=== PATIENT | male | born 1955 | race Caucasian/White ===

== ENCOUNTER 2016-04-09 22:17 | Emergency (ER) | payer OTHER ==
[2016-04-09] MEDS ORDERED: LISINOPRIL 10 MG TAB As Ordered ONE (22:54)
[2016-04-09] MEDS ORDERED: ONDANSETRON 4 MG ORAL DISINTEGRATING TAB (S0181) As Ordered ONE (23:32)
[2016-04-09 23:35] LABS: MEAN CORPUSCULAR HEMOGLOBIN 31.3 pg (27.0-33.0); MEAN CORPUSCULAR HGB CONC 35.2 g/dl (32.0-36.5); MEAN CORPUSCULAR VOLUME 88.9 fl (80.0-96.0); RED CELL DISTRIBUTION WIDTH 13.1 % (11.5-14.5); WHITE BLOOD COUNT 7.6 K/mm3 (4.0-10.0)
[2016-04-09 23:58] LABS: ANION GAP 8 MEQ/L (8-16); BLOOD UREA NITROGEN 12 MG/DL (7-18); CARBON DIOXIDE LEVEL 30 MEQ/L (21-32); CHLORIDE LEVEL 104 MEQ/L (98-107); CREATININE FOR GFR 0.94 MG/DL (0.70-1.30); GLOMERULAR FILTRATION RATE > 60.0 (>49); GLUCOSE, FASTING 132 MG/DL (80-110); SODIUM LEVEL 142 MEQ/L (136-145)
--- NOTE | 2016-04-10 00:17 | EDDOCDS ---
Nurse's Notes [facility] Name: Angel Bingham Age: 60 yrs Sex: Male : 1955 Arrival Date: 04/09/2016 Time: 22:17 Bed 8 Private MD: NO PRIMARY PHYSICIAN, . Diagnosis: Essential (primary) hypertension Presentation: 04/09 22:25 Presenting complaint: Patient states: that he checked his BP before bed and it was ms18 approx 175 systolic. Pt reports a headache, and weak/shaky. Adult Sepsis Screening: The patient does not have new or worsening altered mentation. Patient's respiratory rate is less than 22. Systolic blood pressure is greater than 100. Patient has a qSOFA score of 0- Negative Sepsis Screen. Suicide/Homicide risk assessment- the patient denies having any suicidal and/or homicidal ideations and does not present with any other emotional, behavioral or mental health complaints. Status: Patient is not a auto servicer or dependent. Transition of care: patient was not received from another setting of care. 22:25 Acuity: CATHLEEN Level 3 ms18 22:25 Method Of Arrival: Walkin/Carried/Asstd ms18 Triage Assessment: 22:28 General: Appears in no apparent distress, comfortable, Behavior is appropriate for age, ms18 cooperative. Pain: Location: head Pain currently is 4 out of 10 on a pain scale. HIV screening NA for this visit Offered previously. Neurological: Level of Consciousness is awake, alert, obeys commands, Oriented to person, place, time. Respiratory: Airway is patent Respiratory effort is even, unlabored. Derm: Skin is pink, warm & dry. Historical: - Allergies: no known allergies; - Home Meds: 1. aspirin 81 mg Oral tab 1 tab once daily - PMHx: borderline HTN; - PSHx: Shoulder Arthroscopy- Right; Hernia repair; Spinal Fusion; - Social history: Smoking status: Patient states former smoker of tobacco. No barriers to communication noted, The patient speaks fluent Frisian. - Family history: Not pertinent. - : The pt / caregiver states he / she is not on anticoagulants. Home medication list is obtained from the patient. - Exposure Risk Screening:: None identified. Screenin:59 Screening information is obtained from the patient. Fall risk: No risks identified. ko2 Assistance ADL's: requires no assistance with activities of daily living. Abuse/DV Screen: The patient / caregiver reports he/she is: not in a situation that causes fear, pain or injury. Nutritional screening: No deficits noted. Advance Directives: Currently, there is no health care proxy. There is no active DNR order. There is no living will. There is no Power of Inseam Leveler. home support is adequate. Assessment: 22:35 General: Appears in no apparent distress, Behavior is appropriate for age, cooperative. ko2 Pain: Location: head Pain currently is 4 out of 10 on a pain scale. Neurological: Level of Consciousness is awake, alert. Respiratory: Airway is patent Respiratory effort is even, unlabored. Derm: Skin is normal. 23:40 General: Appears in no apparent distress, Behavior is appropriate for age, cooperative. ko2 Pain: Location: head Pain currently is 3 out of 10 on a pain scale. Neurological: Level of Consciousness is awake, alert. Respiratory: Airway is patent Respiratory effort is even, unlabored. Derm: Skin is normal. 04/10 00:15 General: Appears in no apparent distress, Behavior is appropriate for age, cooperative. ko2 Neurological: Level of Consciousness is awake, alert. Respiratory: Airway is patent Respiratory effort is even, unlabored. Derm: Skin is normal. Vital Signs: 04/09 22:19 BP 199 / 93; Resp 18 S; Temp 97.2(O); Pulse Ox 98% on R/A; Weight 87.54 kg (R); Height gr2 5 ft. 9 in. (175.26 cm) (R); Pain 3/10; 22:59 BP 188 / 98; ko2 23:40 BP 160 / 106; ko2 04/10 00:05 BP 173 / 100; Pulse 82; Resp 18; Temp 99.0(TE); Pulse Ox 97% on R/A; gamal 04/09 22:19 Body Mass Index 28.50 (87.54 kg, 175.26 cm) gr2 Vitals: 04/09 22:19 Log In Time: April 09, 2016 at 22:19. RN notified that patient meets Red Flag gr2 criteria. ED Course: 22:19 Patient visited by Lisa Henry. gr2 22:19 NO PRIMARY PHYSICIAN, . is Private Physician. gr2 22:19 Patient moved to Waiting gr2 22:23 Patient visited by Lisa Henry. gr2 22:23 Patient moved to Pre RCE gr2 22:26 Triage Initiated ms18 22:29 Elsa Farris,RN is Primary Nurse. ms18 22:29 Patient moved to 8 ms18 22:44 Randy Lynn [facility]NP [facility]. ke 22:44 Patient visited by Randy Lynn FNP. ke 22:44 Patient visited by Randy Lynn FNP. ke 22:59 Patient visited by Elsa Farris,LUCIO. ko2 23:00 EKG done. (by ED staff). Reviewed by Randy BARBOSA. jmv 23:01 Patient visited by Charles Sexton, GROUND WOOD SUPERVISOR. jmv 23:11 CBC Sent. jmv 23:11 BMP Sent. jmv 23:11 Troponin Sent. jmv 23:11 CIP Sent. jmv 23:34 Patient visited by Randy Lynn FNP. ke 04/10 00:01 Paul Hastings MD is Referral Physician. ke 00:06 Patient visited by Trudy Coronado PCA. gamal 00:15 The patient / caregiver is instructed regarding the plan of care and ED course. ko2 00:15 No IV's were initiated during this patient's visit. No procedures done that require ko2 assistance. Administered Medications: 04/09 22:58 Drug: Lisinopril 20 mg [lisinopril 10 mg tablet (2 tabs)] Route: PO; ko2 23:40 Drug: Ondansetron ODT 4 mg [ondansetron 4 mg disintegrating tablet (1 tabs)] Route: PO; ko2 Order Results: Lab Order: CIP; SPEC'M 04/09/16 23:08 Test: CPK CREATINE PHOSPHOKINASE; Value: 190; Range: 39-308; Units: U/L; Status: F Test: CK-MB VALUE MASS; Value: 3.9; Range: 0.0-3.6; Abnormal: Above high normal; Units: NG/ML; Status: F Test: MB/CK RELATIVE INDEX; Value: 2.05; Range: < OR =4; Status: F Test Note: ; DIAGNOSIS CRITERIA MMB ng/ml Relative Index (RI) NON-AMI < or = 5 N/A DAVIS ZONE > 5 < or = 4 AMI > 5 > 4 Lab Order: Troponin; SPEC'M 04/09/16 23:08 Test: TROPONIN I; Value: < 0.02; Range: < 0.10; Units: NG/ML; Status: F Test Note: ; Troponin I Reference Interval for [facility] LOCI: 99th Percentile= 0.00-0.045 ng/ml Risk Stratification: <= 0.10 ng/ml Decreased Risk for Adverse Clinical Events. 0.10-1.50 ng/ml Increased Risk for Adverse Clinical Events. Evaluation of additional criterion and/or repeat testing in 2-6 hours is suggested to rule out myocardial damage. >= 1.50 ng/ml Indicative of Myocardial Injury. Lab Order: BMP; SPEC'M 04/09/16 23:08 Test: GLUCOSE, FASTING; Value: 132; Range: 80-110; Abnormal: Above high normal; Units: MG/DL; Status: F Test: BLOOD UREA NITROGEN; Value: 12; Range: 7-18; Units: MG/DL; Status: F Test: CREATININE FOR GFR; Value: 0.94; Range: 0.70-1.30; Units: MG/DL; Status: F Test: GLOMERULAR FILTRATION RATE; Value: > 60.0; Range: >49; Status: F Test: SODIUM LEVEL; Value: 142; Range: 136-145; Units: MEQ/L; Status: F Test: POTASSIUM SERUM; Value: 4.0; Range: 3.5-5.1; Units: MEQ/L; Status: F Test: CHLORIDE LEVEL; Value: 104; Range: 98-107; Units: MEQ/L; Status: F Test: CARBON DIOXIDE LEVEL; Value: 30; Range: 21-32; Units: MEQ/L; Status: F Test: ANION GAP; Value: 8; Range: 8-16; Units: MEQ/L; Status: F Test: CALCIUM LEVEL; Value: 9.0; Range: 8.8-10.2; Units: MG/DL; Status: F Test Note: ; Units are mL/min/1.73 m2 Chronic Kidney Disease Staging per NKF: Stage I & II GFR >=60 Normal to Mildly Decreased Stage III GFR 30-59 Moderately Decreased Stage IV GFR 15-29 Severely Decreased Stage V GFR <15 Very Little GFR Left ESRD GFR <15 on DISABILITY PROGRAM NAVIGATOR Lab Order: CBC; SPEC'M 04/09/16 23:08 Test: WHITE BLOOD COUNT; Value: 7.6; Range: 4.0-10.0; Units: K/mm3; Status: F Test: RED BLOOD COUNT; Value: 4.82; Range: 4.30-6.10; Units: M/mm3; Status: F Test: HEMOGLOBIN; Value: 15.1; Range: 14.0-18.0; Units: g/dl; Status: F Test: HEMATOCRIT; Value: 42.9; Range: 42.0-52.0; Units: %; Status: F Test: MEAN CORPUSCULAR VOLUME; Value: 88.9; Range: 80.0-96.0; Units: fl; Status: F Test: MEAN CORPUSCULAR HEMOGLOBIN; Value: 31.3; Range: 27.0-33.0; Units: pg; Status: F Test: MEAN CORPUSCULAR HGB CONC; Value: 35.2; Range: 32.0-36.5; Units: g/dl; Status: F Test: RED CELL DISTRIBUTION WIDTH; Value: 13.1; Range: 11.5-14.5; Units: %; Status: F Test: PLATELET COUNT, AUTOMATED; Value: 208; Range: 150-450; Units: k/mm3; Status: F Outcome: 04/10 00:01 Discharge ordered by Provider. belem 00:16 Discharge Assessment: Patient awake, alert and oriented x 3. No cognitive and/or ko2 functional deficits noted. Patient verbalized understanding of disposition instructions. patient administered narcotics - no. The following High Risk Discharge criteria are identified: None. Discharged to home ambulatory, with significant other. Condition: stable. No special radiology studies were completed. Property sent home with patient. 00:16 Patient left the ED. ko2 Signatures: Randy Lynn, AIX SYSTEM ADMINISTRATOR AIX SYSTEM ADMINISTRATOR Trudy Casillas, GROUND WOOD SUPERVISOR GROUND WOOD SUPERVISOR Lisa Flores gr2 Elsa Farris,LUCIO RN Zoe Hu,LUCIO RN ms18 Charles Sexton, GROUND WOOD SUPERVISOR GROUND WOOD SUPERVISOR v MTDD
--- NOTE | 2016-04-10 00:17 | EDDOCDS ---
Physician Documentation [facility] Name: Angel Bingham Age: 60 yrs Sex: Male : 1955 Arrival Date: 04/09/2016 Time: 22:17 Bed 8 Private MD: NO PRIMARY PHYSICIAN, . Disposition: 04/10/16 00:01 Discharged to Home/Self Care. Impression: Essential (primary) hypertension. - Condition is Stable. - Discharge Instructions: Hypertension. - Prescriptions for Lisinopril 20 mg Oral Tablet - take 1 tablet by ORAL route once daily; 30 tablet. - Medication Reconciliation, Local Pharmacy Hours form. - Follow up: Paul Hastings MD; When: Call to arrange an appointment; Reason: Further diagnostic work-up, Recheck today's complaints, Continuance of care. - Problem is an acute exacerbation. - Symptoms have improved. Historical: - Allergies: no known allergies; - Home Meds: 1. aspirin 81 mg Oral tab 1 tab once daily - PMHx: borderline HTN; - PSHx: Shoulder Arthroscopy- Right; Hernia repair; Spinal Fusion; - Social history: Smoking status: Patient states former smoker of tobacco. No barriers to communication noted, The patient speaks fluent Serbian. - Family history: Not pertinent. - : The pt / caregiver states he / she is not on anticoagulants. Home medication list is obtained from the patient. - Exposure Risk Screening:: None identified. Vital Signs: 04/09 22:19 BP 199 / 93; Resp 18 S; Temp 97.2(O); Pulse Ox 98% on R/A; Weight 87.54 kg / 192.99 lbs gr2 (R); Height 5 ft. 9 in. (175.26 cm) (R); Pain 3/10; 22:59 BP 188 / 98; ko2 23:40 BP 160 / 106; ko2 04/10 00:05 BP 173 / 100; Pulse 82; Resp 18; Temp 99.0(TE); Pulse Ox 97% on R/A; gamal 04/09 22:19 Body Mass Index 28.50 (87.54 kg, 175.26 cm) gr2 MDM: 04/09 22:43 CIP Ordered. EDMS 22:43 Troponin Ordered. EDMS 22:43 BMP Ordered. EDMS 22:43 CBC Ordered. EDMS 22:51 Lisinopril 20 mg PO once ordered. belem 22:51 ECG WITH READING ER PHYS+CARDIAG ordered. EDMS 23:40 Ondansetron ODT Oral Disintegrating Tablet 4 mg PO once ordered. ko2 23:44 CBC Reviewed. belem 04/10 00:00 CIP Reviewed. belem 00:00 BMP Reviewed. belem 00:00 Troponin Reviewed. ke Administered Medications: 04/09 22:58 Drug: Lisinopril 20 mg [lisinopril 10 mg tablet (2 tabs)] Route: PO; ko2 23:40 Drug: Ondansetron ODT 4 mg [ondansetron 4 mg disintegrating tablet (1 tabs)] Route: PO; ko2 Signatures: Dispatcher [employer] EDRandy Viera, DIRECTOR OF CAREER RESOURCES DIRECTOR OF CAREER RESOURCES Elsa LarkinRN RN ko2 Zoe Borrego RN RN ms18 MTDD
--- NOTE | 2016-04-10 08:14 | ECGEPIP ---
Stationary ECG Study [facility] - ED Test Date: 2016-04-09 Pat Name: MANA PINK Department: Room: - Gender: M Exercise Specialist: dilia : 1955 Requested By: DAJUAN BARBOSA Order Number: [id number] Reading MD: Ioana Austin Measurements Intervals [place] Rate: 78 P: 58 SD: 175 QRS: -19 QRSD: 86 T: 73 QT: 370 QTc: 422 Interpretive Statements SINUS RHYTHM MINIMAL VOLTAGE CRITERIA FOR LVH, CONSIDER NORMAL VARIANT NONSPECIFIC T-WAVE ABNORMALITY NO PRIOR FOR COMPARISON Electronically Signed On 04-10-2016 8:14:03 EST by Ioana Austin
--- NOTE | 2016-04-12 01:17 | EDDOCDS ---
Physician Documentation [facility] Name: Angel Bingham Age: 60 yrs Sex: Male : 1955 Arrival Date: 04/09/2016 Time: 22:17 Bed 8 Private MD: NO PRIMARY PHYSICIAN, . Disposition: 04/10/16 00:01 Discharged to Home/Self Care. Impression: Essential (primary) hypertension. - Condition is Stable. - Discharge Instructions: Hypertension. - Prescriptions for Lisinopril 20 mg Oral Tablet - take 1 tablet by ORAL route once daily; 30 tablet. - Medication Reconciliation, Local Pharmacy Hours form. - Follow up: Paul Hastings MD; When: Call to arrange an appointment; Reason: Further diagnostic work-up, Recheck today's complaints, Continuance of care. - Problem is an acute exacerbation. - Symptoms have improved. Historical: - Allergies: no known allergies; - Home Meds: 1. aspirin 81 mg Oral tab 1 tab once daily - PMHx: borderline HTN; - PSHx: Shoulder Arthroscopy- Right; Hernia repair; Spinal Fusion; - Social history: Smoking status: Patient states former smoker of tobacco. No barriers to communication noted, The patient speaks fluent Maori. - Family history: Not pertinent. - : The pt / caregiver states he / she is not on anticoagulants. Home medication list is obtained from the patient. - Exposure Risk Screening:: None identified. Vital Signs: 04/09 22:19 BP 199 / 93; Resp 18 S; Temp 97.2(O); Pulse Ox 98% on R/A; Weight 87.54 kg / 192.99 lbs gr2 (R); Height 5 ft. 9 in. (175.26 cm) (R); Pain 3/10; 22:59 BP 188 / 98; ko2 23:40 BP 160 / 106; ko2 04/10 00:05 BP 173 / 100; Pulse 82; Resp 18; Temp 99.0(TE); Pulse Ox 97% on R/A; gamal 04/09 22:19 Body Mass Index 28.50 (87.54 kg, 175.26 cm) gr2 MDM: 04/09 22:43 CIP Ordered. EDMS 22:43 Troponin Ordered. EDMS 22:43 BMP Ordered. EDMS 22:43 CBC Ordered. EDMS 22:51 Lisinopril 20 mg PO once ordered. ke 22:51 ECG WITH READING ER PHYS+CARDIAG ordered. EDMS 23:40 Ondansetron ODT Oral Disintegrating Tablet 4 mg PO once ordered. ko2 23:44 CBC Reviewed. ke 04/10 00:00 CIP Reviewed. ke 00:00 BMP Reviewed. ke 00:00 Troponin Reviewed. ke 00:16 Financial registration complete. hs2 01:35 T-Sheet-- Draft Copy was scanned into [employer] and attached to record. [facility] :38 [facility] Payment Agreement was scanned into [employer] and attached to record. hs2 09:55 ECG/EKG was scanned into [employer] and attached to record. gb Administered Medications: 04/09 22:58 Drug: Lisinopril 20 mg [lisinopril 10 mg tablet (2 tabs)] Route: PO; ko2 23:40 Drug: Ondansetron ODT 4 mg [ondansetron 4 mg disintegrating tablet (1 tabs)] Route: PO; ko2 Signatures: Dispatcher [employer] EDMS Michelle Jean Baptiste, Reg Reg gb Randy Lynn, SOFTWARE APPLICATIONS SPECIALIST SOFTWARE APPLICATIONS SPECIALIST Elsa LarkinRN RN ko2 Zoe Borrego RN RN ms18 Arel, Lis Anton, Reg Reg hs2 The chart was reviewed and I authenticate all verbal orders and agree with the evaluation and treatment provided.Attachments: 04/10 01:35 T-Sheet-- Draft Copy [facility] Payment Agreement hs2 09:55 ECG/EKG Chart Complete MTDD
--- NOTE | 2016-04-12 01:17 | EDDOCDS ---
Physician Documentation [facility] Name: Angel Bingham Age: 60 yrs Sex: Male : 1955 Arrival Date: 04/09/2016 Time: 22:17 Bed 8 Private MD: NO PRIMARY PHYSICIAN, . Disposition: 04/10/16 00:01 Discharged to Home/Self Care. Impression: Essential (primary) hypertension. - Condition is Stable. - Discharge Instructions: Hypertension. - Prescriptions for Lisinopril 20 mg Oral Tablet - take 1 tablet by ORAL route once daily; 30 tablet. - Medication Reconciliation, Local Pharmacy Hours form. - Follow up: Paul Hastings MD; When: Call to arrange an appointment; Reason: Further diagnostic work-up, Recheck today's complaints, Continuance of care. - Problem is an acute exacerbation. - Symptoms have improved. Historical: - Allergies: no known allergies; - Home Meds: 1. aspirin 81 mg Oral tab 1 tab once daily - PMHx: borderline HTN; - PSHx: Shoulder Arthroscopy- Right; Hernia repair; Spinal Fusion; - Social history: Smoking status: Patient states former smoker of tobacco. No barriers to communication noted, The patient speaks fluent Maori. - Family history: Not pertinent. - : The pt / caregiver states he / she is not on anticoagulants. Home medication list is obtained from the patient. - Exposure Risk Screening:: None identified. Vital Signs: 04/09 22:19 BP 199 / 93; Resp 18 S; Temp 97.2(O); Pulse Ox 98% on R/A; Weight 87.54 kg / 192.99 lbs gr2 (R); Height 5 ft. 9 in. (175.26 cm) (R); Pain 3/10; 22:59 BP 188 / 98; ko2 23:40 BP 160 / 106; ko2 04/10 00:05 BP 173 / 100; Pulse 82; Resp 18; Temp 99.0(TE); Pulse Ox 97% on R/A; gamal 04/09 22:19 Body Mass Index 28.50 (87.54 kg, 175.26 cm) gr2 MDM: 04/09 22:43 CIP Ordered. EDMS 22:43 Troponin Ordered. EDMS 22:43 BMP Ordered. EDMS 22:43 CBC Ordered. EDMS 22:51 Lisinopril 20 mg PO once ordered. ke 22:51 ECG WITH READING ER PHYS+CARDIAG ordered. EDMS 23:40 Ondansetron ODT Oral Disintegrating Tablet 4 mg PO once ordered. ko2 23:44 CBC Reviewed. ke 04/10 00:00 CIP Reviewed. ke 00:00 BMP Reviewed. ke 00:00 Troponin Reviewed. ke 00:16 Financial registration complete. hs2 01:35 T-Sheet-- Draft Copy was scanned into [employer] and attached to record. [facility] :38 [facility] Payment Agreement was scanned into [employer] and attached to record. hs2 09:55 ECG/EKG was scanned into [employer] and attached to record. gb Administered Medications: 04/09 22:58 Drug: Lisinopril 20 mg [lisinopril 10 mg tablet (2 tabs)] Route: PO; ko2 23:40 Drug: Ondansetron ODT 4 mg [ondansetron 4 mg disintegrating tablet (1 tabs)] Route: PO; ko2 Signatures: Dispatcher [employer] EDMS Michelle Jean Baptiste, Reg Reg gb Randy Lynn, CARE PROVIDER CARE PROVIDER Elsa LarkinRN RN ko2 Zoe Borrego RN RN ms18 Arel, Lis Anton, Reg Reg hs2 The chart was reviewed and I authenticate all verbal orders and agree with the evaluation and treatment provided.Attachments: 04/10 01:35 T-Sheet-- Draft Copy [facility] Payment Agreement hs2 09:55 ECG/EKG Chart Complete MTDD
--- NOTE | 2016-04-12 01:18 | EDDOCDS ---
Nurse's Notes [facility], [place] Name: Angel Bingham Age: 60 yrs Sex: Male : 1955 Arrival Date: 04/09/2016 Time: 22:17 Bed 8 Private MD: NO PRIMARY PHYSICIAN, . Diagnosis: Essential (primary) hypertension Presentation: 04/09 22:25 Presenting complaint: Patient states: that he checked his BP before bed and it was ms18 approx 175 systolic. Pt reports a headache, and weak/shaky. Adult Sepsis Screening: The patient does not have new or worsening altered mentation. Patient's respiratory rate is less than 22. Systolic blood pressure is greater than 100. Patient has a qSOFA score of 0- Negative Sepsis Screen. Suicide/Homicide risk assessment- the patient denies having any suicidal and/or homicidal ideations and does not present with any other emotional, behavioral or mental health complaints. Status: Patient is not a workforce services representative or dependent. Transition of care: patient was not received from another setting of care. 22:25 Acuity: CATHLEEN Level 3 ms18 22:25 Method Of Arrival: Walkin/Carried/Asstd ms18 Triage Assessment: 22:28 General: Appears in no apparent distress, comfortable, Behavior is appropriate for age, ms18 cooperative. Pain: Location: head Pain currently is 4 out of 10 on a pain scale. HIV screening NA for this visit Offered previously. Neurological: Level of Consciousness is awake, alert, obeys commands, Oriented to person, place, time. Respiratory: Airway is patent Respiratory effort is even, unlabored. Derm: Skin is pink, warm & dry. Historical: - Allergies: no known allergies; - Home Meds: 1. aspirin 81 mg Oral tab 1 tab once daily - PMHx: borderline HTN; - PSHx: Shoulder Arthroscopy- Right; Hernia repair; Spinal Fusion; - Social history: Smoking status: Patient states former smoker of tobacco. No barriers to communication noted, The patient speaks fluent German. - Family history: Not pertinent. - : The pt / caregiver states he / she is not on anticoagulants. Home medication list is obtained from the patient. - Exposure Risk Screening:: None identified. Screenin:59 Screening information is obtained from the patient. Fall risk: No risks identified. ko2 Assistance ADL's: requires no assistance with activities of daily living. Abuse/DV Screen: The patient / caregiver reports he/she is: not in a situation that causes fear, pain or injury. Nutritional screening: No deficits noted. Advance Directives: Currently, there is no health care proxy. There is no active DNR order. There is no living will. There is no Power of Director Music. home support is adequate. Assessment: 22:35 General: Appears in no apparent distress, Behavior is appropriate for age, cooperative. ko2 Pain: Location: head Pain currently is 4 out of 10 on a pain scale. Neurological: Level of Consciousness is awake, alert. Respiratory: Airway is patent Respiratory effort is even, unlabored. Derm: Skin is normal. 23:40 General: Appears in no apparent distress, Behavior is appropriate for age, cooperative. ko2 Pain: Location: head Pain currently is 3 out of 10 on a pain scale. Neurological: Level of Consciousness is awake, alert. Respiratory: Airway is patent Respiratory effort is even, unlabored. Derm: Skin is normal. 04/10 00:15 General: Appears in no apparent distress, Behavior is appropriate for age, cooperative. ko2 Neurological: Level of Consciousness is awake, alert. Respiratory: Airway is patent Respiratory effort is even, unlabored. Derm: Skin is normal. Vital Signs: 04/09 22:19 BP 199 / 93; Resp 18 S; Temp 97.2(O); Pulse Ox 98% on R/A; Weight 87.54 kg (R); Height gr2 5 ft. 9 in. (175.26 cm) (R); Pain 3/10; 22:59 BP 188 / 98; ko2 23:40 BP 160 / 106; ko2 04/10 00:05 BP 173 / 100; Pulse 82; Resp 18; Temp 99.0(TE); Pulse Ox 97% on R/A; gamal 04/09 22:19 Body Mass Index 28.50 (87.54 kg, 175.26 cm) gr2 Vitals: 04/09 22:19 Log In Time: April 09, 2016 at 22:19. RN notified that patient meets Red Flag gr2 criteria. ED Course: 22:19 Patient visited by Lisa Henry. gr2 22:19 NO PRIMARY PHYSICIAN, . is Private Physician. gr2 22:19 Patient moved to Waiting gr2 22:23 Patient visited by Lisa Henry. gr2 22:23 Patient moved to Pre RCE gr2 22:26 Triage Initiated ms18 22:29 Elsa Farris,RN is Primary Nurse. ms18 22:29 Patient moved to 8 ms18 22:44 [facility] ke 22:44 Patient visited by Randy Lynn FNP. ke 22:44 Patient visited by Randy Lynn FNP. ke 22:59 Patient visited by Elsa Farris,RN. ko2 23:00 EKG done. (by ED staff). Reviewed by Randy BARBOSA. jmv 23:01 Patient visited by Charles Sexton, JAVA CORE DEVELOPER. jmv 23:11 CBC Sent. jmv 23:11 BMP Sent. jmv 23:11 Troponin Sent. jmv 23:11 CIP Sent. jmv 23:34 Patient visited by Randy Lynn FNP. ke 04/10 00:01 Paul Hastings MD is Referral Physician. ke 00:06 Patient visited by Trudy Coronado PCA. gamal 00:15 The patient / caregiver is instructed regarding the plan of care and ED course. ko2 00:15 No IV's were initiated during this patient's visit. No procedures done that require ko2 assistance. 01:35 T-Sheet-- Draft Copy was scanned into ipvive and attached to record. lja 01:38 COUNTS INCLUDE 234 BEDS AT THE [facility] Payment Agreement was scanned into ipvive and attached to record. hs2 08:36 EKG-ADULT Returned. EDMS 09:55 ECG/EKG was scanned into ipvive and attached to record. gb Administered Medications: 04/09 22:58 Drug: Lisinopril 20 mg [lisinopril 10 mg tablet (2 tabs)] Route: PO; ko2 23:40 Drug: Ondansetron ODT 4 mg [ondansetron 4 mg disintegrating tablet (1 tabs)] Route: PO; ko2 Order Results: Lab Order: CIP; SPEC'M 04/09/16 23:08 Test: CPK CREATINE PHOSPHOKINASE; Value: 190; Range: 39-308; Units: U/L; Status: F Test: CK-MB VALUE MASS; Value: 3.9; Range: 0.0-3.6; Abnormal: Above high normal; Units: NG/ML; Status: F Test: MB/CK RELATIVE INDEX; Value: 2.05; Range: < OR =4; Status: F Test Note: ; DIAGNOSIS CRITERIA MMB ng/ml Relative Index (RI) NON-AMI < or = 5 N/A DAVIS ZONE > 5 < or = 4 AMI > 5 > 4 Lab Order: Troponin; SPEC'M 04/09/16 23:08 Test: TROPONIN I; Value: < 0.02; Range: < 0.10; Units: NG/ML; Status: F Test Note: ; Troponin I Reference Interval for [place]unch LOCI: 99th Percentile= 0.00-0.045 ng/ml Risk Stratification: <= 0.10 ng/ml Decreased Risk for Adverse Clinical Events. 0.10-1.50 ng/ml Increased Risk for Adverse Clinical Events. Evaluation of additional criterion and/or repeat testing in 2-6 hours is suggested to rule out myocardial damage. >= 1.50 ng/ml Indicative of Myocardial Injury. Lab Order: BMP; SPEC'M 04/09/16 23:08 Test: GLUCOSE, FASTING; Value: 132; Range: 80-110; Abnormal: Above high normal; Units: MG/DL; Status: F Test: BLOOD UREA NITROGEN; Value: 12; Range: 7-18; Units: MG/DL; Status: F Test: CREATININE FOR GFR; Value: 0.94; Range: 0.70-1.30; Units: MG/DL; Status: F Test: GLOMERULAR FILTRATION RATE; Value: > 60.0; Range: >49; Status: F Test: SODIUM LEVEL; Value: 142; Range: 136-145; Units: MEQ/L; Status: F Test: POTASSIUM SERUM; Value: 4.0; Range: 3.5-5.1; Units: MEQ/L; Status: F Test: CHLORIDE LEVEL; Value: 104; Range: 98-107; Units: MEQ/L; Status: F Test: CARBON DIOXIDE LEVEL; Value: 30; Range: 21-32; Units: MEQ/L; Status: F Test: ANION GAP; Value: 8; Range: 8-16; Units: MEQ/L; Status: F Test: CALCIUM LEVEL; Value: 9.0; Range: 8.8-10.2; Units: MG/DL; Status: F Test Note: ; Units are mL/min/1.73 m2 Chronic Kidney Disease Staging per NKF: Stage I & II GFR >=60 Normal to Mildly Decreased Stage III GFR 30-59 Moderately Decreased Stage IV GFR 15-29 Severely Decreased Stage V GFR <15 Very Little GFR Left ESRD GFR <15 on ALIGNER Lab Order: CBC; SPEC'M 04/09/16 23:08 Test: WHITE BLOOD COUNT; Value: 7.6; Range: 4.0-10.0; Units: K/mm3; Status: F Test: RED BLOOD COUNT; Value: 4.82; Range: 4.30-6.10; Units: M/mm3; Status: F Test: HEMOGLOBIN; Value: 15.1; Range: 14.0-18.0; Units: g/dl; Status: F Test: HEMATOCRIT; Value: 42.9; Range: 42.0-52.0; Units: %; Status: F Test: MEAN CORPUSCULAR VOLUME; Value: 88.9; Range: 80.0-96.0; Units: fl; Status: F Test: MEAN CORPUSCULAR HEMOGLOBIN; Value: 31.3; Range: 27.0-33.0; Units: pg; Status: F Test: MEAN CORPUSCULAR HGB CONC; Value: 35.2; Range: 32.0-36.5; Units: g/dl; Status: F Test: RED CELL DISTRIBUTION WIDTH; Value: 13.1; Range: 11.5-14.5; Units: %; Status: F Test: PLATELET COUNT, AUTOMATED; Value: 208; Range: 150-450; Units: k/mm3; Status: F Radiology Order: EKG-ADULT Test: EKG-ADULT REASON FOR EXAMINATION: htn; Stationary ECG Study; [facility] - ED; ; Test Date: 2016-04-09; Pat Name: ANGEL BINGHAM Department:; Room: -; Gender: M Manager Of Tax: dilia; : 1955 Requested By: RANDY BARBOSA; Order Number: [id number] Manav MD: Ioana Austin; Measurements; Intervals [place]; Rate: 78 P: 58; OH: 175 QRS: -19; QRSD: 86 T: 73; QT: 370; QTc: 422; Interpretive Statements; SINUS RHYTHM; MINIMAL VOLTAGE CRITERIA FOR LVH, CONSIDER NORMAL VARIANT; NONSPECIFIC T-WAVE ABNORMALITY; NO PRIOR FOR COMPARISON; Electronically Signed On 04-10-2016 8:14:03 EST by Ioana Austin; Outcome: 04/10 00:01 Discharge ordered by Provider. ke 00:16 Discharge Assessment: Patient awake, alert and oriented x 3. No cognitive and/or ko2 functional deficits noted. Patient verbalized understanding of disposition instructions. patient administered narcotics - no. The following High Risk Discharge criteria are identified: None. Discharged to home ambulatory, with significant other. Condition: stable. No special radiology studies were completed. Property sent home with patient. 00:16 Patient left the ED. ko2 Signatures: Dispatcher [employer] EDMS Michelle Jean Baptiste, Reg Reg gb Leah, Randy, DRY END TESTER DRY END TESTER ke Trudy Coronado, JAVA CORE DEVELOPER JAVA CORE DEVELOPER gamal Lisa Henry gr2 Elsa FarrisRN RN ko2 Zoe Borrego RN RN ms18 Tee, Lis Anton, Reg Reg hs2 Charles Sexton, JAVA CORE DEVELOPER JAVA CORE DEVELOPER jmv Chart Complete MTDD
== END 2016-04-10 00:16 | disposition home or self-care (01) ==
LOC: M ED 22:17
DX: I10 Essential (primary) hypertension (principal); Z79.82 Long term (current) use of aspirin; Z87.891 Personal history of nicotine dependence; Z98.1 Arthrodesis status

== ENCOUNTER → 2018-10-02 | Outpatient (CLI) | payer OTHER ==
--- NOTE | 2018-10-02 14:36 | NUR ---
Pt seen for Modified Barium Swallow Study d/t c/o feeling like foods are not going down and are stuck in his throat. Pt reported that he can massage his neck when he has a globus feeling and foods can be regurgitated. Pt presents with severe pharyngeal phase dysphagia as characterized by: possible Zenker's diverticulum at the pharyngeal/esophageal juncture. Observed that Pt needed to swallow several times in order to get minimal amount of bolus to pass into the esophagus. Regurgitation of diverticulum contents observed. Recommend: Puree solids and regular thin liquids. Remain upright following intake until globus sensation passes. Addendum: 10/02/18 at 1441 by [facility] Amended: Links added.
--- NOTE | 2018-10-06 07:48 | REP ---
Examination Requested: Cookie Swallow Reason For Exam: Dysphasia The procedure was performed by JP Blanchard, under the direct supervision of Dr. Bruce. The procedure was performed with Luisa Fu from speech pathology present. 5 ml aliquots of thin consistency barium was administered. There is a posterior esophageal outpouching measuring 9.4 x 13.8 mm, most consistent with a Zenker's diverticulum, causing mass effect and very likely related to patient's symptoms. The detailed report of this examination will be provided by speech pathology. 0.7 minutes of fluoroscopy time was utilized for this procedure. Reviewed by JP Mccullough 10/03/2018 04:03 P Electronically Signed by Eligio Bruce MD 10/06/2018 07:39 A
== END ==
LOC: M ST 12:30
PROVIDERS: ATTEND Internal Medicine Gastroenterology
DX: R13.12 Dysphagia, oropharyngeal phase (principal)

== ENCOUNTER → 2019-10-07 | Outpatient (CLI) | payer OTHER ==
[~2019-10-07] MED LIST: E-Z-GAS II EFFERVESCENT PACKET (SODIUM BICARB./CITRIC ACID/SIMETHICONE) As Ordered ONE; E-Z-HD 98% w/w 340GM SUSP BTL As Ordered ONE; E-Z-PAQUE 96% w/w SUSP 176GM BTL As Ordered ONE
--- NOTE | 2019-10-07 15:18 | REP ---
Examination Requested: Esophagram Barium Swallow Reason For Exam/Comment: Diverticulum of the esophagus Esophagram: The procedure was performed JP Blanchard, under the direct supervision of Dr. Springer. The images were reviewed with Dr. Springer. A single PA chest x-ray is submitted as a immigration inspector film. The superior mediastinal structures are midline. The heart size is within normal limits. The lungs are clear. Liquid barium and gas producing granules were given in the erect position as well as liquid barium in the prone oblique position, in order to perform a double contrast esophagram examination. Oral and pharyngeal stages of the examination were unremarkable. A Zenker's diverticulum measuring approximately 1.8 x 0.8 x 3.4 cm is again visualized. This is causing a narrowing of the esophagus, though esophageal transport seems unhindered. There is no hiatal hernia noted. Gastroesophageal reflux was not visualized during this exam. Impression: 1. Zenker's diverticulum measuring approximately 1.8 x 0.8 x 3.4 cm. 0.3 minutes of fluoroscopy time was utilized for this procedure. Some fluoroscopic images are performed with last image hold technology. These images require no additional radiation. Reviewed by JP Mcucllough 10/07/2019 01:51 P Electronically Signed by Jag Springer MD 10/07/2019 03:10 P
== END ==
LOC: M RAD 09:38
PROVIDERS: ATTEND Otolaryngology
DX: K22.5 Diverticulum of esophagus, acquired (principal)

== ENCOUNTER → 2019-11-19 | Outpatient (REF) | payer MEDICARE, OTHER | LOC: M LAB REF 12:57 | PROVIDERS: ATTEND Dermatology | DX: C44.319 Basal cell carcinoma of skin of other parts of face (principal) ==

== ENCOUNTER → 2020-04-20 | Outpatient (CLI) | payer MEDICARE, OTHER | LOC: M LABSMTC 13:36 | PROVIDERS: ATTEND Family Medicine | DX: Z11.52 Encounter for screening for COVID-19 (principal) ==

== ENCOUNTER → 2020-09-19 | Outpatient (CLI) | payer MEDICARE, OTHER ==
--- NOTE | 2020-09-19 16:51 | REP ---
INDICATION: DIVERTICULUM OF ESOPHAGUS. COMPARISON: Esophagram dated 10/07/2019 TECHNIQUE: This procedure was performed by Marisol Benson [facility], under the direct supervision of Dr. Barajas. Images were reviewed with Dr. Barajas prior to dictation. Liquid barium and gas producing crystals were given in the erect position, as well as liquid barium in the prone oblique position in order to perform a double contrast upper GI examination. FINDINGS: The mud jack operator film shows no organomegaly or pathological masses. The intestinal gas pattern is unremarkable. The oral and pharyngeal stages of deglutition were unremarkable. A Zenker's diverticulum is again visualized today measuring 1.9 x 1.4 x 3.6 cm. Again visualized is a narrowing of the proximal esophagus due to the Zenker's diverticulum, although esophageal transport seems being on hindered by this narrowing.. There is no evidence of a hiatal hernia. There was no gastroesophageal reflux noted . IMPRESSION: 1. Zenker's diverticulum again visualized today measuring 1.9 x 1.4 x 3.6 cm. 0.3 minutes of fluoroscopy time was utilized for this procedure. Some fluoroscopic images are performed with last image hold technology. These images require no additional radiation. <Electronically signed by Marisol Benson > 09/19/20 1251 <Electronically signed by Ricardo Barajas > 09/19/20 [id number]
== END ==
LOC: M RAD 08:33
PROVIDERS: ATTEND Otolaryngology
DX: K22.5 Diverticulum of esophagus, acquired (principal)

== ENCOUNTER → 2021-01-16 | Outpatient (CLI) | payer MEDICARE, OTHER ==
[~2021-01-16] MED LIST changes: -E-Z-GAS II EFFERVESCENT PACKET (SODIUM BICARB./CITRIC ACID/SIMETHICONE) As Ordered ONE; -E-Z-HD 98% w/w 340GM SUSP BTL As Ordered ONE; -E-Z-PAQUE 96% w/w SUSP 176GM BTL As Ordered ONE; +ECOT81TA5 PO; +FINA5TAB2 PO; +LISI20TA33 PO; +OMEP-221 PO
== END ==
LOC: M LABSMTC 09:25
PROVIDERS: ATTEND Anesthesiology
DX: Z01.818 Encounter for other preprocedural examination (principal); Z11.52 Encounter for screening for COVID-19

== ENCOUNTER 2021-01-20 09:26 | Day surgery (SDC) | payer MEDICARE, OTHER ==
[~2021-01-20] VITALS: Ht 175.3 cm; Wt 80.3 kg
[~2021-01-20 09:26] MED LIST changes: +NS 1,000 ML IV ONE
--- OUTSIDE RECORDS SUMMARY | 2021-01-20 09:29 | CCD | Continuity of Care Document ---
Author Author Angel YOUSSEF M.D. Organization Unknown Address [address] [place] [id number] Phone [phone] Care Team Providers Care Quantitative Strategy Analyst Name Role Phone Lizzy Moncada AUTM [phone] Problems Active Problems Provider Date Gastroesophageal reflux disease Nelson Youssef M.D. Ons et: 08/13/2017 Screening for malignant neoplasm of colon Nelson lacy M.D. Onset: 01/03/2016 Social History Type Date Description Comments Sex Unknown ETOH Use Occasionally Tobacco Use Start: Unknown End: Unknown Patient is a former smoker Allergies, Adverse Reactions, Alerts Description No Known Drug Allergies Medications Active Medications SIG Qnty Indications Ordering Provide r Date Suprep Bowel Prep Kit 17.5-3.13-1.6GM/177ML Solution use as directed 354ml Nelson Youssef M.D. 12/01/[address] 1 cap by mouth every morning 90caps Nelson Youssef M.D. 018 Lisinopril 20mg Tablets Kinga Elliott NP Finasteride 5mg Tablets Jayne San Aspirin Adult Low Dose 81mg Tablets DR Rios Immunizations Description No Information Available Vital Signs Date Vital Result Comment 12/01/2020 10:04am Height 69 inches 5'9" Weight 186.00 lb BP Systolic 128 mmHg BP Diastolic 83 mmHg Heart Rate 111 /min BMI (Body Mass Index) 27.5 kg/m2 Weight 84.370 kg Body Temperature 97.0 F 09/23/2018 1:03pm Height 69 inches 5'9" Weight 187.00 lb BP Systolic 154 mmHg BP Diastolic 90 mmHg Heart Rate 98 /min BMI (Body Mass Index) 27.6 kg/m2 Weight 84.823 kg Results Description No Information Available Procedures Date Code Description Status 12/01/2020 00491 Office/Outpatient Established Mo d MDM 30-39 Min Completed Medical Devices Description No Information Available Encounters Type Date Location Provider Dx Diagnosis Office Visit 12/01/2020 9:45a Main Office Nelson Youssef M.D. Z 86.010 Personal history of colonic polyps R12 Heartburn Assessments Date Code Description Provider 12/01/2020 Z86.010 Personal history of colonic poly ps Nelson Youssef M.D. 12/01/2020 R12 Heartburn Nelson mcdonnell M.D. Plan of Treatment Future Appointment(s):* 01/20/2021 11:15 am - Nelson Youssef M.D. at Main Office 12/01/2020 - Nelson Youssef M.D.* Z86.010 Personal history of colonic polyps* Comments:* 64 yo wm who presents for a colonoscopy/egd due to a h/o colonic polyps/heartburn. Last scope was in 2015. No c/o abdominal pain, weight loss, change in bowel habits, or rectal bleeding. No family h/o colon cancer. No h/o chest pain, or sob. Plan:1. .Schedule patient for Colonoscopy + egd.2. Informed consent given.3. Advised to stop asa, plavix,and anticoagulation 3 to 7 days prior to the procedures. * R12 Heartburn* Comments:* Schedule EGD.Informed consent given. Functional Status Description No Information Available Mental Status Description No Information Available Referrals Description No Information Available
--- OUTSIDE RECORDS SUMMARY | 2021-01-20 09:30 | CCD ---
Author Author [facility] Organization [facility] Address Unknown Phone Unavailable Care Team Providers Care Account Engineer Name Role Phone Coral, L Lizzy LIVE TRUCK TECHNICIAN Unavailable Unavailable Coral, L Lizzy LIVE TRUCK TECHNICIAN Unavailable Unavailable [place], L Lizzy LIVE TRUCK TECHNICIAN Unavailable Unavailable [place], L Lizzy LIVE TRUCK TECHNICIAN Unavailable Unavailable [place], L Lizzy LIVE TRUCK TECHNICIAN Unavailable Unavailable [place], L Lizzy LIVE TRUCK TECHNICIAN Unavailable Unavailable Coral, L Lizzy LIVE TRUCK TECHNICIAN Unavailable Unavailable [place], L Lizzy LIVE TRUCK TECHNICIAN Unavailable Unavailable [place], L Lizzy LIVE TRUCK TECHNICIAN Unavailable Unavailable [place], L Lizzy LIVE TRUCK TECHNICIAN Unavailable Unavailable Coral, L Lizzy LIVE TRUCK TECHNICIAN Unavailable Unavailable Coral, L Lizzy LIVE TRUCK TECHNICIAN Unavailable Unavailable Coral, L Lizzy LIVE TRUCK TECHNICIAN Unavailable Unavailable Coral, L Lizzy LIVE TRUCK TECHNICIAN Unavailable Unavailable [place], L Lizzy LIVE TRUCK TECHNICIAN Unavailable Unavailable Coral, L Lizzy LIVE TRUCK TECHNICIAN Unavailable Unavailable [place], L Lizzy LIVE TRUCK TECHNICIAN Unavailable Unavailable Coral, L Lizzy LIVE TRUCK TECHNICIAN Unavailable Unavailable Coral, L Lizzy LIVE TRUCK TECHNICIAN Unavailable Unavailable Coral, L Lizzy LIVE TRUCK TECHNICIAN Unavailable Unavailable Coral, L Lizzy LIVE TRUCK TECHNICIAN Unavailable Unavailable [place], L Lizzy LIVE TRUCK TECHNICIAN Unavailable Unavailable Coral, L Lizzy LIVE TRUCK TECHNICIAN Unavailable Unavailable [place], L Lizzy LIVE TRUCK TECHNICIAN Unavailable Unavailable Coral, L Lizzy LIVE TRUCK TECHNICIAN Unavailable Unavailable Coral, L Lizzy LIVE TRUCK TECHNICIAN Unavailable Unavailable [place], L Lizzy LIVE TRUCK TECHNICIAN Unavailable Unavailable [place], L Lizzy LIVE TRUCK TECHNICIAN Unavailable Unavailable [place], L Lizzy LIVE TRUCK TECHNICIAN Unavailable Unavailable Coral, L Lizzy LIVE TRUCK TECHNICIAN Unavailable Unavailable Coral, L Lizzy LIVE TRUCK TECHNICIAN Unavailable Unavailable Coral, L Lizzy LIVE TRUCK TECHNICIAN Unavailable Unavailable Coral, L Lizzy LIVE TRUCK TECHNICIAN Unavailable Unavailable Coral, L Lizzy LIVE TRUCK TECHNICIAN Unavailable Unavailable [place], L Lizzy LIVE TRUCK TECHNICIAN Unavailable Unavailable [place], L Lizzy LIVE TRUCK TECHNICIAN Unavailable Unavailable [place], L Lizzy LIVE TRUCK TECHNICIAN Unavailable Unavailable [place], L Lizzy LIVE TRUCK TECHNICIAN Unavailable Unavailable Armani Youssef MD Unavailable Unavailable Armani Youssef MD Unavailable Unavailable Armani Youssef MD Unavailable Unavailable Armani Youssef MD Unavailable Unavailable Armani Youssef MD Unavailable Unavailable Armani Youssef MD Unavailable Unavailable Armani Youssef MD Unavailable Unavailable Armani Youssef MD Unavailable Unavailable Armani Youssef MD Unavailable Unavailable Armani Youssef MD Unavailable Unavailable Armani Youssef MD Unavailable Unavailable Armani Youssef MD Unavailable Unavailable Armani Youssef MD Unavailable Unavailable Armani Youssef MD Unavailable Unavailable Armani Youssef MD Unavailable Unavailable Armani Youssef MD Unavailable Unavailable Armani Youssef MD Unavailable Unavailable Armani Youssef MD Unavailable Unavailable Armani Youssef MD Unavailable Unavailable Armani Youssef MD Unavailable Unavailable Armani Youssef MD Unavailable Unavailable Armani Youssef MD Unavailable Unavailable Armani Youssef MD Unavailable Unavailable Armani Youssef MD Unavailable Unavailable Armani Youssef MD Unavailable Unavailable Armani Youssef MD Unavailable Unavailable Armani Youssef MD Unavailable Unavailable Armani Youssef MD Unavailable Unavailable Armani Youssef MD Unavailable Unavailable Armani Youssef MD Unavailable Unavailable Armani Youssef MD Unavailable Unavailable Armani Youssef MD Unavailable Unavailable Armani Youssef MD Unavailable Unavailable Armani Youssef MD Unavailable Unavailable Armani Youssef MD Unavailable Unavailable Armani Youssef MD Unavailable Unavailable Armani Youssef MD Unavailable Unavailable Armani Youssef MD Unavailable Unavailable Armani Youssef MD Unavailable Unavailable Armani Youssef MD Unavailable Unavailable Armani Youssef MD Unavailable Unavailable Armani Youssef MD Unavailable Unavailable Armani Youssef MD Unavailable Unavailable Armani Youssef MD Unavailable Unavailable Armani Youssef MD Unavailable Unavailable Armani Youssef MD Unavailable Unavailable Armani Youssef MD Unavailable Unavailable Armani Youssef MD Unavailable Unavailable Armani Youssef MD Unavailable Unavailable Armani Youssef MD Unavailable Unavailable Fish, B Clifton WILDER Unavailable Unavailable Fish, B Clifton WILDER Unavailable Unavailable Fish, B Clifton WILDER Unavailable Unavailable Fish, B Clifton WILDER Unavailable Unavailable Fish, B Clifton WILDER Unavailable Unavailable Fish, B Clifton WILDER Unavailable Unavailable Fish, B Clifton WILDER Unavailable Unavailable Fish, B Clifton WILDER Unavailable Unavailable Fish, B Clifton WILDER Unavailable Unavailable Fish, B Clifton WILDER Unavailable Unavailable Fish, B Clifton WILDER Unavailable Unavailable Fish, B Clifton WILDER Unavailable Unavailable Fish, B Clifton WILDER Unavailable Unavailable Fish, B Clifton WILDER Unavailable Unavailable Fish, B Clifton WILDER Unavailable Unavailable Fish, B Clifton WILDER Unavailable Unavailable Fish, B Clifton WILDER Unavailable Unavailable Fish, B Clifton WILDER Unavailable Unavailable Fish, B Clifton WILDER Unavailable Unavailable Fish, B Clifton WILDER Unavailable Unavailable Fish, B Clifton WILDER Unavailable Unavailable Fish, B Clifton WILDER Unavailable Unavailable Fish, B Clifton WILDER Unavailable Unavailable Fish, B Clifton WILDER Unavailable Unavailable Fish, B Clifton WILDER Unavailable Unavailable Fish, B Clifton WILDER Unavailable Unavailable Fish, B Clifton WILDER Unavailable Unavailable Fish, B Clifton WILDER Unavailable Unavailable Fish, B Clifton WILDER Unavailable Unavailable Fish, B Clifton WILDER Unavailable Unavailable Fish, B Clifton WILDER Unavailable Unavailable Fish, B Clifton WILDER Unavailable Unavailable Fish, B Clifton WILDER Unavailable Unavailable Fish, B Clifton WILDER Unavailable Unavailable Fish, B Clifton WILDER Unavailable Unavailable Fish, B Clifton WILDER Unavailable Unavailable Fish, B Clifton WILDER Unavailable Unavailable Fish, B Clifton WILDER Unavailable Unavailable Fish, B Clifton WILDER Unavailable Unavailable Fish, B Clifton WILDER Unavailable Unavailable Fish, B Clifton WILDER Unavailable Unavailable Fish, B Clifton WILDER Unavailable Unavailable Fish, B Clifton WILDER Unavailable Unavailable Fish, B Clifton WILDER Unavailable Unavailable Fish, B Clifton WILDER Unavailable Unavailable Fish, B Clifton WILDER Unavailable Unavailable Fish, B Clifton WILDER Unavailable Unavailable Fish, B Clifton WILDER Unavailable Unavailable Fish, B Clifton WILDER Unavailable Unavailable Fish, B Clifton WILDER Unavailable Unavailable Fish, B Clif[place] WILDER Unavailable Unavailable Fish, B Clifton WILDER Unavailable Unavailable Fish, B Clif[place] WILDER Unavailable Unavailable Fish, B Clif[place] WILDER Unavailable Unavailable Fish, B Cl[place] WILDER Unavailable Unavailable Fish, B [place] WILDER Unavailable Unavailable CHANTEL KRUSE MD Unavailable Unavailable CHANTEL KRUSE MD Unavailable Unavailable CHANTEL KRUSE MD Unavailable Unavailable AIXACHANTEL MD Unavailable Unavailable AIXA, PRYJMA DESMOND MD Unavailable Unavailable AIXA, PRYJMA DESMOND MD Unavailable Unavailable AIXA, PRYJMA DESMOND MD Unavailable Unavailable AIXA, PRYJMA DESMOND MD Unavailable Unavailable AIXA, PRYJMA DESMOND MD Unavailable Unavailable AIXA, PRYJMA DESMOND MD Unavailable Unavailable AIXA, PRYJMA DESMOND MD Unavailable Unavailable AIXA, PRYJMA DESMOND MD Unavailable Unavailable AIXA, PRYJMA DESMOND MD Unavailable Unavailable AIXA, PRYJMA DESMOND MD Unavailable Unavailable AIXA, PRYJMA DESMOND MD Unavailable Unavailable AIXA, PRYJMA DESMOND MD Unavailable Unavailable AIXA, PRYJMA DESMOND MD Unavailable Unavailable AIXA, PRYJMA DESMOND MD Unavailable Unavailable AIXA, PRYJMA DESMOND MD Unavailable Unavailable AIXA, PRYJMA DESMOND MD Unavailable Unavailable AIXA, PRYJMA DESMOND MD Unavailable Unavailable AIXA, PRYJMA DESMOND MD Unavailable Unavailable AIXA, PRYJMA DESMOND MD Unavailable Unavailable AIXA, PRYJMA DESMOND MD Unavailable Unavailable AIXA, PRYJMA DESMOND MD Unavailable Unavailable AIXA, PRYJMA DESMOND MD Unavailable Unavailable AIXA, PRYJMA DESMOND MD Unavailable Unavailable AIXA, PRYJMA DESMOND MD Unavailable Unavailable AIXA, PRYJMA DESMOND MD Unavailable Unavailable AIXA, PRYJMA DESMOND MD Unavailable Unavailable [place], Delroy MD Unavailable Unavailable [place] MD Unavailable Unavailable [place], Delroy MD Unavailable Unavailable [place] Delroy MD Unavailable Unavailable [place] Delroy MD Unavailable Unavailable [place] Delroy MD Unavailable Unavailable [place] Delroy MD Unavailable Unavailable [place], Delroy MD Unavailable Unavailable [place], Delroy MD Unavailable Unavailable [place] Delroy MD Unavailable Unavailable [place], Delroy MD Unavailable Unavailable [place], Delroy MD Unavailable Unavailable [place], Delroy MD Unavailable Unavailable [place], Delroy MD Unavailable Unavailable [place], Delroy MD Unavailable Unavailable [place], Delroy MD Unavailable Unavailable [place], Delroy MD Unavailable Unavailable [place], Delroy MD Unavailable Unavailable [place], Delroy MD Unavailable Unavailable [place], Delroy MD Unavailable Unavailable [place], Delroy MD Unavailable Unavailable [place], Delroy MD Unavailable Unavailable [place], Delroy MD Unavailable Unavailable [place], Delroy MD Unavailable Unavailable [place], Delroy MD Unavailable Unavailable [place], Delroy WILDER Unavailable Unavailable [place], Delroy WILDER Unavailable Unavailable [place], Delroy WILDER Unavailable Unavailable [place], Delroy WILDER Unavailable Unavailable [place], Delroy WILDER Unavailable Unavailable [place], A Phyl MISSILE PAD MECHANIC-BC Unavailable Unavailable [place], A Phyl MISSILE PAD MECHANIC-BC Unavailable Unavailable [place], A Phyl MISSILE PAD MECHANIC-BC Unavailable Unavailable [place], A Phyl MISSILE PAD MECHANIC-BC Unavailable Unavailable [place], A Phyl MISSILE PAD MECHANIC-BC Unavailable Unavailable [place], A Phyl MISSILE PAD MECHANIC-BC Unavailable Unavailable [place], A Phyl MISSILE PAD MECHANIC-BC Unavailable Unavailable [place], A Phyl MISSILE PAD MECHANIC-BC Unavailable Unavailable [place], A Phyl MISSILE PAD MECHANIC-BC Unavailable Unavailable [place], A Phyl MISSILE PAD MECHANIC-BC Unavailable Unavailable [place], A Phyl MISSILE PAD MECHANIC-BC Unavailable Unavailable [place], A Phyl MISSILE PAD MECHANIC-BC Unavailable Unavailable [place], A Phyl MISSILE PAD MECHANIC-BC Unavailable Unavailable [place], A Phyl MISSILE PAD MECHANIC-BC Unavailable Unavailable [place], A Phyl MISSILE PAD MECHANIC-BC Unavailable Unavailable [place], A Phyl MISSILE PAD MECHANIC-BC Unavailable Unavailable [place], A Phyl MISSILE PAD MECHANIC-BC Unavailable Unavailable [place], A Phyl MISSILE PAD MECHANIC-BC Unavailable Unavailable [place], A Phyl MISSILE PAD MECHANIC-BC Unavailable Unavailable [place], A Phyl MISSILE PAD MECHANIC-BC Unavailable Unavailable [place], A Phyl MISSILE PAD MECHANIC-BC Unavailable Unavailable [place], A Phyl MISSILE PAD MECHANIC-BC Unavailable Unavailable [place], A Phyl MISSILE PAD MECHANIC-BC Unavailable Unavailable [place], A Phyl MISSILE PAD MECHANIC-BC Unavailable Unavailable [place], A Phyl MISSILE PAD MECHANIC-BC Unavailable Unavailable [place], A Phyl MISSILE PAD MECHANIC-BC Unavailable Unavailable [place], A Phyl MISSILE PAD MECHANIC-BC Unavailable Unavailable [place], A Phyl MISSILE PAD MECHANIC-BC Unavailable Unavailable [place], A Phyl MISSILE PAD MECHANIC-BC Unavailable Unavailable [place], A Phyl MISSILE PAD MECHANIC-BC Unavailable Unavailable [place], A Phyl MISSILE PAD MECHANIC-BC Unavailable Unavailable [place], A Phyl MISSILE PAD MECHANIC-BC Unavailable Unavailable GRUBBS, LUISITO FUNMILAYO MISSILE PAD MECHANIC-C, MSN Unavailable Unavailab le GRUBBS, LUISITO FUNMILAYO MISSILE PAD MECHANIC-C, MSN Unavailable Unavailab le [place]UB[place], LUISITO FUNMILAYO MISSILE PAD MECHANIC-C, MSN Unavailable Unavailab le [place]UB[place], LUISITO FUNMILAYO MISSILE PAD MECHANIC-C, MSN Unavailable Unavailab le GRUB[place], LUISITO FUNMILAYO MISSILE PAD MECHANIC-C, MSN Unavailable Unavailab le GRUB[place], LUISITO FUNMILAYO MISSILE PAD MECHANIC-C, MSN Unavailable Unavailab le [place]UB[place], LUISITO FUNMILAYO MISSILE PAD MECHANIC-C, MSN Unavailable Unavailab le [place], LUISITO FUNMILAYO MISSILE PAD MECHANIC-C, MSN Unavailable Unavailab le [place]UB[place], LUISITO FUNMILAYO MISSILE PAD MECHANIC-C, MSN Unavailable Unavailab le GRUB[place], LUISITO FUNMILAYO MISSILE PAD MECHANIC-C, MSN Unavailable Unavailab le GRUB[place], LUISITO FUNMILAYO MISSILE PAD MECHANIC-C, MSN Unavailable Unavailab le [place]UB[place], LUISITO FUNMILAYO MISSILE PAD MECHANIC-C, MSN Unavailable Unavailab le [place]UB[place], LUISITO FUNMILAYO MISSILE PAD MECHANIC-C, MSN Unavailable Unavailab le GRUBBS, LUISITO FUNMILAYO MISSILE PAD MECHANIC-C, MSN Unavailable Unavailab le GRUBBS, LUISITO FUNMILAYO MISSILE PAD MECHANIC-C, MSN Unavailable Unavailab le GRUBBS, LUISITO FUNMILAYO MISSILE PAD MECHANIC-C, MSN Unavailable Unavailab le GRUBBS, LUISITO FUNMILAYO MISSILE PAD MECHANIC-C, MSN Unavailable Unavailab le GRUBBS, LUISITO FUNMILAYO MISSILE PAD MECHANIC-C, MSN Unavailable Unavailab le GRUB[place], LUISITO FUNMILAYO MISSILE PAD MECHANIC-C, MSN Unavailable Unavailab le GRUBBS, LUISITO FUNMILAYO MISSILE PAD MECHANIC-C, MSN Unavailable Unavailab le GRUBBS, LUISITO FUNMILAYO MISSILE PAD MECHANIC-C, MSN Unavailable Unavailab le GRUBBS, LUISITO FUNMILAYO MISSILE PAD MECHANIC-C, MSN Unavailable Unavailab le GRUBBS, LUISITO FUNMILAYO MISSILE PAD MECHANIC-C, MSN Unavailable Unavailab le [place]UB[place], LUISITO FUNMILAYO MISSILE PAD MECHANIC-C, MSN Unavailable Unavailab le [place]UB[place], LUISITO FUNMILAYO MISSILE PAD MECHANIC-C, MSN Unavailable Unavailab le GRUBBS, LUISITO FUNMILAYO MISSILE PAD MECHANIC-C, MSN Unavailable Unavailab le GRUBBS, LUISITO FUNMILAYO MISSILE PAD MECHANIC-C, MSN Unavailable Unavailab le GRUBBS, LUISITO FUNMILAYO MISSILE PAD MECHANIC-C, MSN Unavailable Unavailab le GRUBBS, LUISITO FUNMILAYO MISSILE PAD MECHANIC-C, MSN Unavailable Unavailab le GRUBBS, LUISITO FUNMILAYO MISSILE PAD MECHANIC-C, MSN Unavailable Unavailab le GRUBBS, LUISITO FUNMILAYO MISSILE PAD MECHANIC-C, MSN Unavailable Unavailab le GRUBBS, LUISITO FUNMILAYO MISSILE PAD MECHANIC-C, MSN Unavailable Unavailab le GRUBBS, LUISITO FUNMILAYO MISSILE PAD MECHANIC-C, MSN Unavailable Unavailab le GRUBBS, LUISITO FUNMILAYO MISSILE PAD MECHANIC-C, MSN Unavailable Unavailab le GRUBBS, LUISITO FUNMILAYO MISSILE PAD MECHANIC-C, MSN Unavailable Unavailab le GRUBBS, LUISITO FUNMILAYO MISSILE PAD MECHANIC-C, MSN Unavailable Unavailab le GRUBBS, LUISITO FUNMILAYO MISSILE PAD MECHANIC-C, MSN Unavailable Unavailab le GRUBBS, LUISITO FUNMILAYO MISSILE PAD MECHANIC-C, MSN Unavailable Unavailab le GRUBBS, LUISITO FUNMILAYO MISSILE PAD MECHANIC-C, MSN Unavailable Unavailab le GRUBBS, LUISITO FUNMILAYO MISSILE PAD MECHANIC-C, MSN Unavailable Unavailab le GRUBBS, LUISITO FUNMILAYO MISSILE PAD MECHANIC-C, MSN Unavailable Unavailab le GRUBBS, LUISITO FUNMILAYO MISSILE PAD MECHANIC-C, MSN Unavailable Unavailab le GRUBBS, LUISITO FUNMILAYO MISSILE PAD MECHANIC-C, MSN Unavailable Unavailab le GRUBBS, LUISITO FUNMILAYO MISSILE PAD MECHANIC-C, MSN Unavailable Unavailab le GRUBBS, LUISITO FUNMILAYO MISSILE PAD MECHANIC-C, MSN Unavailable Unavailab le Re-disclosure Warning The records that you are about to access may contain information from federally-assisted alcohol or drug abuse programs. If such information is present, then the following federally mandated warning applies: This information has been disclosed to you from records protected by federal confidentiality rules (42 CFR part 2). The federal rules prohibit you from making any further disclosure of this information unless further disclosure is expressly permitted by the written consent of the person to whom it pertains or as otherwise permitted by 42 CFR part 2. A general authorization for the release of medical or other information is NOT sufficient for this purpose. The Federal rules restrict any use of the information to criminally investigate or prosecute any alcohol or drug abuse patient.The records that you are about to access may contain highly sensitive health information, the redisclosure of which is protected by Article 27-F of the [facility] Public Health law. If you continue you may have access to information: Regarding HIV / AIDS; Provided by facilities licensed or operated by the [facility] Office of Mental Health; or Provided by the [facility] Office for People With Developmental Disabilities. If such information is present, then the following [facility] mandated warning applies: This information has been disclosed to you from confidential records which are protected by state law. State law prohibits you from making any further disclosure of this information without the specific written consent of the person to whom it pertains, or as otherwise permitted by law. Any unauthorized further disclosure in violation of state law may result in a fine or alf sentence or both. A general authorization for the release of medical or other information is NOT sufficient authorization for further disc losure. Family History Family Member Name Family Member Gender Family Member Status Date o f Status Description Data Source(s) Unknown Unknown Problem [facility] ([facility]) Unknown Unknown Problem [facility] ([facility]) Encounters Encounter Providers Location Date Indications Data Source(s ) Outpatient Attender: Lizzy GARCIA 12/27/2020 07:24:00 AM [facility] Outpatient Attender: Lizzy Moncada RNPReferrer: Simon GARCIA EMERGENCY ROOM-LAB 12/20/2020 07:26:00 AM EDT - 12/20/2020 07:26:00 AM [facility] Outpatient Attender: Nelson Youssef MD Main Office 12/01/2020 09:45:00 AM EDT [facility] ([facility]) Outpatient Attender: Jennifer Robledo [facility] Main Office 0 09/30/2020 01:15:00 PM EDT [facility] Out[facility] Attender: Delroy De La Torre/Wilfred/Skip/Michelle israel 09/22/2020 08:30:00 AM EDT [facility] ([facility]) Outpatient Attender: Lizzy GARCIA 08/09/2020 01:20:00 PM [facility] OFFICE OUTPATIENT VISIT 15 MINUTES Attender: Clifton Melchor MD Phys ical Therapy 08/08/2020 04:00:00 PM EDT [facility] ([facility]) Outpatient Attender: Delroy De La Torre/Wilfred/Skip/Michelle israel 06/27/2020 09:00:00 AM EDT [facility] ([facility]) Outpatient Attender: Clifton Melchor MD Physical Therapy 06/20/2020 0 1:00:00 PM EDT [facility] ([facility]) Outpatient Attender: Jennifer SANCHEZ Main Office 0 04/13/2020 11:45:00 AM EST [facility] ([facility] Outpatient Attender: Clifton Melchor MD Physical Therapy 03/17/2020 0 8:45:00 AM EST [facility] ([facility]) OFFICE OUTPATIENT NEW 30 MINUTES Attender: Clifton Melchor MD Physic al Therapy 03/07/2020 08:30:00 AM EST [facility] ([facility]) Outpatient Attender: Lizzy Moncada RNPReferrer: Simon GARCIA EMERGENCY ROOM-LAB 02/11/2020 08:17:00 AM EST - 02/11/2020 08:17:00 AM [facility] Outpatient Attender: Lizzy GARCIA 12/08/2019 01:09:00 PM [facility] Outpatient Attender: FUNMILAYO CAMP MSNReferr er: FUNMILAYO CAMP, MSN EMERGENCY ROOM-LAB 11/13/2019 07:15:00 AM EDT - 11/13/2019 07:15:00 AM [facility] Outpatient Attender: FUNMILAYO CAMP, MSN 06/30/2019 1 2:30:00 PM [facility] Outpatient Attender: FUNMILAYO CAMP MSNReferr er: [facility] EMERGENCY ROOM-LAB 06/12/2019 08:27:00 AM EST - 06/12/2019 08:27:00 AM [facility] Outpatient Attender: FUNMILAYO CAMP MSNReferr er: FUNMILAYO CAMP, MSN 07/02/2018 08:45:00 AM EDT - 07/02/2018 08:45:00 AM [facility] Outpatient Attender: DESMOND KRUSE MD 02/02/2013 05:34:00 PM [facility] Outpatient Attender: DESMOND KRUSE MD 06/13/2012 04:43:00 PM [facility] Immunizations Vaccine Date Status Description Data Source(s) COVID-19 VACCINE Moderna 06/06/2020 12:00:00 AM EST completed [facility] Vaccine Series Complete: YESThis Data wa s Submitted to [facility] Via [facility]. COVID-19 VACCINE Moderna 05/05/2020 12:00:00 AM EST completed [facility] Vaccine Series Complete: NOThis Data was Submitted to [facility] Via [facility]. Medications Medication Brand Name Start Date Product Form Dose Route Admi nistrative Instructions Pharmacy Instructions Status Indications Reaction Description Data Source(s) Suprep Bowel Prep Kit Suprep Bowel Prep Kit 12/01/2020 12:00:00 AM EDT active [facility] Insurance Providers Payer name Policy type / Coverage type Policy ID Covered alliance party ID Covered alliance party's relationship to sequeira Policy Sequ[employer] Plan Information [employer] [id number] SPO [id number] [employer] U [id number] Spouse [id number] UMR [id number] SPO [id number] UMR [id number] SPO [id number] [employer] [id number] S [id number] [place]IC[place] [id number] S [id number] UMR [id number] SPO [id number] UMR [id number] SPO [id number] [employer] UNAVAILABLE S UNAVAILABLE [employer] [id number] SPO [id number] Umr Commercial [id number] Family Dependent [id number] Umr Commercial [id number] Family Dependent [id number] [employer] [id number] SP [id number] UMR [id number] SPO [id number] SELF PAY UNAVAILABLE S UNAVAILA BLE [employer] [id number] Family Dependent [id number] [employer] [id number] [employer] [id number] Family Dependent [place] [id number] [id number] MEDICARE [id number] SP [id number] [facility] [id number] [facility] [id number] [place]IC[place] [id number] S [id number] [employer] [id number] S [id number] Problems, Conditions, and Diagnoses Code Display Name Description Problem Type Effective Dates Data Source(s) Z71.2 Person consulting for explanation of exa mination or test findings PERSON CONSULTING FOR EXPLANATION OF EXAM OR TEST Diagnosis 12/27/2020 07:24: 00 AM [facility] N28.9 Disorder of kidney and ureter, unspecifi ed DISORDER OF KIDNEY AND URETER, UNSPECIFIED Diagnosis 12/27/2020 07:24:00 AM [facility] l Z68.27 Body mass index (BMI) 27.0-27.9, adult B ANDREIA MASS INDEX [BMI] 27.0-27.9, ADULT Diagnosis 12/27/2020 07:24:00 AM [facility] l E66.3 Overweight OVERWEIGHT Diagnosis 12/27/2020 07:24:00 AM [facility] E78.5 Hyperlipidemia, unspecified HYPERLIPIDEMIA, UNSPECIFIE D Diagnosis 12/27/2020 07:24:00 AM [facility] I10 Essential (primary) hypertension ESSENTIAL (PRIMARY) H YPERTENSION Diagnosis 12/27/2020 07:24:00 AM [facility] Z12.5 Encounter for screening for malignant ne oplasm of prostate ENCOUNTER FOR SCREENING FOR MALIGNANT NE Diagnosis 12/20/2020 07:26:00 AM [facility] N52.9 Male erectile dysfunction, unspecified M CONCEPCION ERECTILE DYSFUNCTION, UNSPECIFIED Diagnosis 12/20/2020 07:26:00 AM [facility] l N40.0 Benign prostatic hyperplasia without low er urinary tract symptoms BENIGN PROSTATIC HYPERPLASIA WITHOUT LOW Diagnosis 12/20/2020 07:26:00 AM [facility] Z53.20 Procedure and treatment not carried out because of patient's decision for unspecified reasons PROC/TRTMT NOT CRD OUT BEC PT DECISION FOR UNSP RE Diagnosis 08/09/2020 01:20:00 PM [facility] K21.00 GASTRO-ESOPHAGEAL REFLUX DIS WITH ESOPHA GITIS, WIT GASTRO-ESOPHAGEAL REFLUX DIS WITH ESOPHAGITIS, WIT Diagnosis 08/09/2020 01:20:00 PM [facility] Z87.898 Personal history of other specified cond itions PERSONAL HISTORY OF OTHER SPECIFIED CONDITIONS Diagnosis 02/11/2020 08:17:00 AM [facility] mervat Z28.21 Immunization not carried out because of patient refusal IMMUNIZATION NOT CARRIED OUT BECAUSE OF PATIENT RE Diagnosis 12/08/2019 01:09:00 PM [facility] Z71.89 Other specified counseling OTHER SPECIFIED COUNSELING Diagnosis 12/08/2019 01:09:00 PM [facility] K21.0 Gastro-esophageal reflux disease with es ophagitis GASTRO-ESOPHAGEAL REFLUX DISEASE WITH ESOPHAGITIS Diagnosis 12/08/2019 01:09:00 PM [facility] ospital Surgeries/Procedures Procedure Description Date Indications Data Source(s) OFFICE OUTPATIENT VISIT 25 MINUTES 12/01/2020 12:00:00 AM EDT [facility] ([facility]) DESTRUCTION PREMALIGNANT LESION 1ST 09/30/2020 12:00:0 0 AM EDT [facility] ([facility]) OFFICE OUTPATIENT VISIT 25 MINUTES 09/30/2020 12:00:00 AM EDT [facility] ([facility]) ARTHROCENTESIS ASPIR&/INJECTION MAJOR JT/BURSA 021 12:00:00 AM EDT [facility] ([facility] ) OFFICE OUTPATIENT VISIT 25 MINUTES 04/13/2020 12:00:00 AM EST [facility] ([facility]) MRI Lower Extremity Any Joint 03/14/2020 12:00:[address] [facility] ([facility] ) MRI Lower Extremity Any Joint 03/14/2020 12:00:[address] [facility] ([facility] ) RADIOLOGIC EXAM KNEE COMPLETE 4/MORE VIEWS 03/07/2020 12:00:00 AM EST [facility] ([facility]) Results ID Date Data Source [id number] 12/20/2020 08:35:00 AM [facility] l Name Value Range Interpretation Code Description Data Teresa rce(s) Supporting Document(s) PSA SCREENING 3.86 ng/mL 0.0-4.0 [facility] THIS ASSAY WAS PERFORMED ON THE [employer] EXL USINGTHE B- GALACTOSIDASE/CRPG METHODOLOGY. THE PSA IS NOT AN ABSOLUTE TEST FOR MALIGNANCY. IT SHOULD BEUSED IN CONJUNCTION WITH INFORMATION AVAILABLE FROM THECLINICAL EVALUATION AND OTHER DIAGNOSTIC PROCEDURES. VALUES OBTAINED WITH DIFFERENT ASSAY METHODS CANNOT BE USEDINTERCHANGEABLY. ID Date Data Source [id number] 12/20/2020 08:07:00 AM EDT [facility] Name Value Range Interpretation Code Description Data Teresa rce(s) Supporting Document(s) CHOLESTEROL 226 mg/dL 0-200 H [facility] TRIGLYCERIDES 144 mg/dL 0-150 [facility] LDL CHOLESTEROL 153 mg/dL 0-100 H [facility] HDL CHOLESTEROL 44 mg/dL 40-60 [facility] CHOL/HDL RATIO 5.1 0.0-5.0 H [facility] ID Date Data Source [id number] 12/20/2020 08:07:00 AM T [facility] Name Value Range Interpretation Code Description Data Teresa rce(s) Supporting Document(s) GLUCOSE 97 mg/dL 74-106 [facility] BLOOD UREA NITROGEN 19 mg/dL 7-18 H [facility] ital CREATININE 1.32 mg/dL 0.7-1.3 H [facility] SODIUM 140 mmol/L 136-145 [facility] POTASSIUM 5.1 mmol/L 3.5-5.1 [facility] CHLORIDE 106 mmol/L 98-107 [facility] CO2 30 mmol/L 21-32 [facility] CALCIUM 9.3 mg/dL 8.5-10.1 [facility] ANION GAP 4.0 mmol/L 5-12 L [facility] GLOMERULAR FILTRATION RATE 54 mL/min [facility] GFR IS CALCULATED IN mL/min/1.73m2 KAREN L FUNCTION: >90MILDLY DECREASED: 60-89MILDY TO MODERATELY DECREASED: 45-59 MODERATELY TO SEVERELY DECREASED: 30-44SEVERELY DECREASED: 15-29RENAL FAILURE: <15 AST 20 U/L 15-37 [facility] ALT 30 U/L 12-78 [facility] ALKALINE PHOSPHATASE 57 U/L 46-116 [facility] pital TOTAL BILIRUBIN 0.5 mg/dL 0.2-1.0 [facility] TOTAL PROTEIN 7.3 g/dl 6.4-8.2 [facility] ALBUMIN 4.1 gm/dL 3.4-5.0 [facility] ID Date Data Source [id number] 12/20/2020 07:37:00 AM EDT [facility] Name Value Range Interpretation Code Description Data Teresa rce(s) Supporting Document(s) WHITE BLOOD COUNT 4.9 K/mm3 4.0-10.0 [facility] RED BLOOD COUNT 4.60 M/mm3 4.50-6.00 [facility] HEMOGLOBIN 14.1 gm/dL 14.0-18.0 [facility] HEMATOCRIT 40.4 % 42.0-54.0 L [facility] MEAN CELL VOLUME 87.8 fl 80-96 [facility] MEAN CORPUSCULAR HEMOGLOBIN 30.7 pg 27.0-31.0 [facility] MEAN CORPUSCULAR HGB CONC 34.9 g/dl 32.0-36.0 [facility] RED CELL DISTRIBUTION WIDTH 12.6 % 10.0-14.5 [facility] PLATELET COUNT 196 K/mm3 172-450 [facility] MEAN PLATELET VOLUME 10.4 fl 9.0-13.0 [facility]ital GRAN % 65.9 % 50-80.0 [facility] IG% 0.4 % 0.0-0.2 H [facility] LYMPH % 18.6 % 25.0-50.0 L [facility] MONO % 8.0 % 2.0-10.0 [facility] EOS % 6.3 % 0-5.0 H [facility] BASO % 0.8 % 0.0-2.0 [facility] GRAN # 3.2 K/mm3 2.0-8.00 [facility] IG# 0.0 K/mm3 0.0-0.2 [facility] LYMPH # 0.9 K/mm3 1.0-5.0 L [facility] MONO # 0.4 K/mm3 0.10-1.20 [facility] EOS # 0.3 K/mm3 0.0-0.5 [facility] BASO # 0.0 K/mm3 0.0-0.2 [facility] ID Date Data Source [id number] 04/20/2020 02:00:00 PM EST [facility] Name Value Range Interpretation Code Description Data Teresa rce(s) Supporting Document(s) SARS coronavirus 2 RNA Not Detected [facility] This lab was ordered by [facility] and reported by [facility]. ID Date Data Source [id number] 02/11/2020 09:50:00 AM EST [facility] Name Value Range Interpretation Code Description Data Teresa rce(s) Supporting Document(s) CHOLESTEROL 195 mg/dL 0-200 [facility] TRIGLYCERIDES 112 mg/dL 0-150 [facility] LDL CHOLESTEROL 131 mg/dL 0-100 H [facility] HDL CHOLESTEROL 42 mg/dL 40-60 [facility] CHOL/HDL RATIO 4.6 0.0-5.0 [facility] ID Date Data Source [id number] 02/11/2020 09:19:00 AM EST [facility] Name Value Range Interpretation Code Description Data [facility](s) PSA 3.36 ng/mL 0.0-4.0 [facility] THIS ASSAY WAS PERFORMED ON THE [employer] EXL USINGTHE B- GALACTOSIDASE/CRPG METHODOLOGY. THE PSA IS NOT AN ABSOLUTE TEST FOR MALIGNANCY. IT SHOULD BEUSED IN CONJUNCTION WITH INFORMATION AVAILABLE FROM THECLINICAL EVALUATION AND OTHER DIAGNOSTIC PROCEDURES. VALUES OBTAINED WITH DIFFERENT ASSAY METHODS CANNOT BE USEDINTERCHANGEABLY. Procedure Social History No Information Vital Signs ID Date Data Source UNK Name Value Range Interpretation Code Description Data Source(s) Body height 69 [in_i] 69 [in_i] [facility] 5'9" Body weight 186.00 [lb_av] 186.00 [lb_av] [facility] ([facility]) Systolic blood pressure 128 mm[Hg] 128 mm[Hg] [facility] Diastolic blood pressure 83 mm[Hg] 83 mm[Hg] [facility] ([facility]) Heart rate 111 /min 111 /min [facility] Body mass index (BMI) [Ratio] 27.5 kg/m2 27.5 k g/m2 [facility] ([facility]) Body weight 84.[address] [facility] ([facility]) Body temperature 97.0 [degF] 97.0 [degF] [facility] ([facility]) Systolic blood pressure 131 mm[Hg] 131 mm[Hg] M [facility] ([facility]) Diastolic blood pressure 70 mm[Hg] 70 mm[Hg] [facility] ([facility]) Body weight 185.00 [lb_av] 185.00 [lb_av] [facility] ([facility]) Body height 69 [in_i] 69 [in_i] [facility] ([facility], ) 5'9" Body weight 188.38 [lb_av] 188.38 [lb_av] [facility] ([facility]) Body mass index (BMI) [Ratio] 27.8 kg/m2 27.8 k g/m2 [facility] ([facility]) [place] body weight 160 [lb_av] 160 [lb_av] [facility] ([facility]) Body weight 85.447 kg 85.447 kg [facility] ([facility]) Body surface area Derived from formula 2.[address] [facility] ([facility]) Body height 69 [in_i] 69 [in_i] [facility] ([facility]) 5'9" Body weight 184.00 [lb_av] 184.00 [lb_av] [facility] ([facility]) Body mass index (BMI) [Ratio] 27.2 kg/m2 27.2 k g/m2 [facility] ([facility]) [place] body weight 160 [lb_av] 160 [lb_av] [facility] ([facility]) Body weight 83.[address] [facility] ([facility]) Body surface area Derived from formula 1.[address] [facility] ([facility]) Systolic blood pressure 135 mm[Hg] 135 mm[Hg] M [facility] ([facility]) Diastolic blood pressure 90 mm[Hg] 90 mm[Hg] [facility] ([facility]) Body weight 183.00 [lb_av] 183.00 [lb_av] [facility] ([facility]) Body temperature 96.2 [degF] 96.2 [degF] [facility] ([facility] ) Body height 68.5 [in_i] 68.5 [in_i] [facility] ([facility] ) 5'8.50" Body weight 182.00 [lb_av] 182.00 [lb_av] [facility] ([facility] ) Body mass index (BMI) [Ratio] 27.3 kg/m2 27.3 k g/m2 [facility] ([facility] ) Body temperature 96.4 [degF] 96.4 [degF] [facility] ([facility] )
[2021-01-20] MEDS ORDERED: LIDOCAINE 2% 100MG/5ML SDV (FOR ANES.) As Ordered ONE (09:36)
[2021-01-20] MEDS ORDERED: propofoL 500 MG/50 ML VIAL As Ordered ONE (09:36)
[2021-01-20] MEDS ORDERED: fentaNYL 100 MCG/2 ML INJECTION (J3010) As Ordered ONE (09:36)
[2021-01-20] MEDS ORDERED: PHENYLephrine 500MCG 5ML (100MCG/ML) SYRINGE As Ordered ONE (11:21)
[2021-01-20] MEDS ORDERED: propofoL 200 MG/20 ML VIAL As Ordered ONE (11:28)
--- NOTE | 2021-01-20 11:28 | ROOR ---
Patient Name: Anegl Bingham Procedure Date: 01/20/2021 11:01 AM Date of : 1955 Age: 65 Room: [facility] Gender: Male Note Status: Finalized Procedure: Upper Endoscopy + Biopsies Indications: Heartburn, Exclusion of Daugherty's esophagus Providers: Nelson Youssef MD Referring MD: Lizzy Moncada NP Requesting Provider: Medicines: Monitored Anesthesia Care Complications: No immediate complications. Procedure: Pre-Anesthesia Assessment: - The heart rate, respiratory rate, oxygen saturations, blood pressure, adequacy of pulmonary ventilation, and response to care were monitored throughout the procedure. The Endoscope was introduced through the mouth, and advanced to the upper third of esophagus. The Colonoscope was introduced through the mouth, and advanced to the second part of duodenum. The upper GI endoscopy was accomplished without difficulty. The patient tolerated the procedure well. Findings: A non-bleeding Zenker's diverticulum with a large opening, no impacted food and no stigmata of recent bleeding was found. A small hiatal hernia was present. Biopsies were taken with a cold forceps for histology. No other significant abnormalities were identified in a careful examination of the stomach. The exam of the duodenum was otherwise normal. Impression: - Zenker's diverticulum. - Small hiatal hernia. Biopsied. - The examination was otherwise normal. Recommendation: - Await pathology results. - Discharge patient to home. - Follow an antireflux regimen. - Continue present medications. - Await pathology results. - Telephone GI clinic for pathology results in 1 week. - Return to referring physician. - The findings and recommendations were discussed with the patient. Procedure Code(s): --- Professional --- 32519, Esophagogastroduodenoscopy, flexible, transoral; with biopsy, single or multiple Diagnosis Code(s): --- Professional --- K22.5, Diverticulum of esophagus, acquired K44.9, Diaphragmatic hernia without obstruction or gangrene R12, Heartburn CPT copyright 2019 [employer]. All rights reserved. The codes documented in this report are preliminary and upon tare worker review may be revised to meet current compliance requirements. Nelson Youssef MD Nelson Youssef MD 01/20/2021 11:28:30 AM Electronically signed by Nelson Youssef MD Number of Addenda: 0 Note Initiated On: 01/20/2021 11:01 AM Estimated Blood Loss: Estimated blood loss: none.
--- NOTE | 2021-01-20 11:43 | ROOR ---
Patient Name: Angel Bingham Procedure Date: 01/20/2021 11:02 AM Date of : 1955 Age: 65 Room: [facility] Gender: Male Note Status: Finalized Procedure: Total Colonoscopy to Cecum Indications: High risk colon cancer surveillance: Personal history of colonic polyps, Last colonoscopy: 2015 Providers: Nelson Youssef MD Referring MD: Lizzy Moncada NP Requesting Provider: Medicines: Monitored Anesthesia Care Complications: No immediate complications. Procedure: Pre-Anesthesia Assessment: - The heart rate, respiratory rate, oxygen saturations, blood pressure, adequacy of pulmonary ventilation, and response to care were monitored throughout the procedure. The Colonoscope was introduced through the anus and advanced to the cecum, identified by appendiceal orifice and ileocecal valve. The colonoscopy was performed without difficulty. The patient tolerated the procedure well. The quality of the bowel preparation was excellent. Findings: The perianal and digital rectal examinations were normal. Non-bleeding internal hemorrhoids were found during retroflexion. The hemorrhoids were small and Grade I (internal hemorrhoids that do not prolapse). Multiple small and large-mouthed diverticula were found in the recto-sigmoid colon, sigmoid colon and descending colon. The exam was otherwise without abnormality on direct and retroflexion views. Impression: - Non-bleeding internal hemorrhoids. - Diverticulosis in the recto-sigmoid colon, in the sigmoid colon and in the descending colon. - The examination was otherwise normal on direct and retroflexion views. - No specimens collected. - The exam was otherwise normal to the cecum. Recommendation: - Patient has a contact number available for emergencies. The signs and symptoms of potential delayed complications were discussed with the patient. Return to normal activities tomorrow. Written discharge instructions were provided to the patient. - High fiber diet. - Discharge patient to home. - Continue present medications. - Repeat colonoscopy in 5 years for surveillance. - Return to referring physician. - The findings and recommendations were discussed with the patient. Procedure Code(s): --- Professional --- G0105, Colorectal cancer screening; colonoscopy on individual at high risk Diagnosis Code(s): --- Professional --- Z86.010, Personal history of colonic polyps K64.0, First degree hemorrhoids K57.30, Diverticulosis of large intestine without perforation or abscess without bleeding CPT copyright 2019 [employer]. All rights reserved. The codes documented in this report are preliminary and upon cpc coder review may be revised to meet current compliance requirements. Nelson Youssef MD Nelson Youssef MD 01/20/2021 11:43:06 AM Electronically signed by Nelson Youssef MD Number of Addenda: 0 Note Initiated On: 01/20/2021 11:02 AM Estimated Blood Loss: Estimated blood loss: none.
[2021-01-20 12:08] VITALS: BP 112/59
== END 2021-01-20 12:09 | disposition home or self-care (01) ==
LOC: M OPP 09:26
PROVIDERS: ATTEND Internal Medicine Gastroenterology
DX: Z12.11 Encounter for screening for malignant neoplasm of colon (principal); Z86.010 Personal history of colon polyps; K57.30 Diverticulosis of large intestine without perforation or abscess without bleeding; K64.0 First degree hemorrhoids; K44.9 Diaphragmatic hernia without obstruction or gangrene; K22.5 Diverticulum of esophagus, acquired; R12 Heartburn; Z79.82 Long term (current) use of aspirin; Z79.899 Other long term (current) drug therapy; Z87.891 Personal history of nicotine dependence
CPT/HCPCS: 43239; 88305; G0105; J2370; J3010

== ENCOUNTER → 2021-09-15 | Outpatient (CLI) | payer MEDICARE, OTHER ==
[~2021-09-15] MED LIST changes: +E-Z-GAS II EFFERVESCENT PACKET (SODIUM BICARB./CITRIC ACID/SIMETHICONE) As Ordered ONE; +E-Z-HD 98% w/w 340GM SUSP BTL As Ordered ONE; +E-Z-PAQUE 96% w/w SUSP 176GM BTL As Ordered ONE; -NS 1,000 ML IV ONE; -OMEP-221 PO; +OMEP40CA5 PO
== END ==
LOC: M RAD 09:18
PROVIDERS: ATTEND Otolaryngology
DX: K22.5 Diverticulum of esophagus, acquired (principal); K44.9 Diaphragmatic hernia without obstruction or gangrene; K21.9 Gastro-esophageal reflux disease without esophagitis

== ENCOUNTER → 2022-02-08 | Outpatient (REF) | payer MEDICARE, OTHER ==
[~2022-02-08] MED LIST changes: -E-Z-GAS II EFFERVESCENT PACKET (SODIUM BICARB./CITRIC ACID/SIMETHICONE) As Ordered ONE; -E-Z-HD 98% w/w 340GM SUSP BTL As Ordered ONE; -E-Z-PAQUE 96% w/w SUSP 176GM BTL As Ordered ONE
[2022-02-08 18:17] LABS: PERCENT SATURATION 27.5 % (19.7-50.0)
== END ==
LOC: M LAB REF 17:03
PROVIDERS: ATTEND Internal Medicine Nephrology
DX: D50.9 Iron deficiency anemia, unspecified (principal)